=== PATIENT | female | born 1955 | race Caucasian/White ===

== ENCOUNTER 2021-01-31 07:56 | Day surgery (SDC) | payer MEDICARE, BC ==
[~2021-01-31] VITALS: Ht 160 cm; Wt 66.5 kg
[~2021-01-31 07:56] MED LIST: ESCI10; OMEP20ER PO; ZOLP10
[2021-01-31] MEDS ORDERED: ESTRADIOL42.5 GM (08:31)
[2021-01-31] MEDS ORDERED: PROG100 (08:32)
== END 2021-01-31 09:50 | disposition home or self-care (01) ==
LOC: ORSCSDS 07:56
PROVIDERS: Surgery
PROC: 0DJD8ZZ Inspection of Lower Intestinal Tract, Via Natural or Artificial Opening Endoscopic (ICD-10-PCS; principal; 2021-01-31 09:00)
DX: Z12.11 Encounter for screening for malignant neoplasm of colon (principal); F41.9 Anxiety disorder, unspecified; K21.9 Gastro-esophageal reflux disease without esophagitis; E78.5 Hyperlipidemia, unspecified; Z87.891 Personal history of nicotine dependence; Z79.899 Other long term (current) drug therapy
CPT/HCPCS: J2704; J7120

== ENCOUNTER → 2022-10-29 | Outpatient (CLI) | payer MEDICARE, BC ==
[~2022-10-29] MED LIST changes: +ESTRADIOL42.5 GM; +PROG100
[2022-10-30 07:37] LABS: Candida species (DNA Probe) Negative (NEGATIVE); G. vaginalis (DNA Probe) Negative (NEGATIVE); T. vaginalis (DNA Probe) Negative (NEGATIVE)
== END ==
LOC: LAB SHORT 17:31 → LAB 17:31
PROVIDERS: Physician Assistant
DX: B37.31 Acute candidiasis of vulva and vagina (principal)
CPT/HCPCS: 87480; 87510; 87660

== ENCOUNTER → 2022-11-18 | Outpatient (CLI) | payer MEDICARE, BC | LOC: LAB SHORT 14:15 → LAB 14:15 | DX: N39.0 Urinary tract infection, site not specified (principal) | CPT/HCPCS: 87077; 87086; 87186 ==

== ENCOUNTER 2023-06-18 06:41 | Day surgery (SDC) | payer OTHER ==
[~2023-06-18] VITALS: Ht 160 cm; Wt 64.4 kg
[~2023-06-18 06:41] MED LIST changes: +Lactated Ringer's 1,000 ML IV ONE
[2023-06-18] MEDS ORDERED: NS 50 ML IV ONE (06:48)
[2023-06-18] MEDS ORDERED: CeFAZolin Sodium 2,000 MG VIAL ONE (06:48)
[2023-06-18] MEDS ORDERED: Lidocaine HCl 2% 10 ML SDA ONE (07:20)
[2023-06-18] MEDS ORDERED: ZOLPIDEM TARTRAT5 MG PO (07:26)
[2023-06-18] MEDS ORDERED: Lactated Ringer's 1,000 ML IV ONE (07:30)
[2023-06-18] MEDS ORDERED: propofoL 20 ML IV ONE (07:38)
[2023-06-18 08:27] VITALS: BP 94/68
== END 2023-06-18 08:45 | disposition home or self-care (01) ==
LOC: ORSCSDS 06:41
PROVIDERS: Orthopaedic Surgery
PROC: 01N54ZZ Release Median Nerve, Percutaneous Endoscopic Approach (ICD-10-PCS; principal; 2023-06-18 08:00)
DX: G56.03 Carpal tunnel syndrome, bilateral upper limbs (principal); E78.5 Hyperlipidemia, unspecified; F41.9 Anxiety disorder, unspecified; K21.9 Gastro-esophageal reflux disease without esophagitis; Z87.891 Personal history of nicotine dependence; Z79.899 Other long term (current) drug therapy
CPT/HCPCS: J0690; J2001; J2704; J7120

== ENCOUNTER 2024-08-16 06:10 | Day surgery (SDC) | payer OTHER ==
[~2024-08-16] VITALS: Ht 159 cm; Wt 62.7 kg
[2024-08-16] VITALS (16 sets, daily range): BP systolic 74–167; BP diastolic 46–98
[~2024-08-16 06:10] MED LIST changes: +CeFAZolin Sodium 2,000 MG in NS 100 ML IV SCH; +Chlorhexidine Mouth Care 15 ML UDC MT SCH; -ESCI10; +ESCI20 PO; -Lactated Ringer's 1,000 ML IV ONE; +MELO7.5 PO; +Ropivacaine 0.5% HCl/Pf 123.125 MG,EPINEPHrine HCL 0.25 MG,Ketorolac Tromethamine 15 MG... INFIL SCH; +Tranexamic Acid 100 ML IV SCH; +ZOLP10 PO
[2024-08-16] MEDS ORDERED: Dexamethasone Sod Phos 10 MG/ML 1ML VIAL ONE (06:13)
[2024-08-16] MEDS ORDERED: Ondansetron HCl 2 MG / ML 2ML Vial ONE (06:13)
[2024-08-16] MEDS ORDERED: Bupivacaine 0.5% HCl 5 MG/ML 30MLVIAL ONE (06:13)
[2024-08-16] MEDS ORDERED: FentaNYL Citrate 50 MCG/ML 2 ML Injection ONE (06:14)
[2024-08-16] MEDS ORDERED: Metoclopramide HCl 5MG / ML 2ML Vial IV PRN ×2 (06:35→09:55)
[2024-08-16] MEDS ORDERED: Midazolam HCl 1MG / ML 2ML Vial IV ONE (06:35)
[2024-08-16] MEDS ORDERED: FentaNYL Citrate 50 MCG/ML 2 ML Injection IV PRN ×3 (06:40→06:50)
[2024-08-16] MEDS ORDERED: Albuterol 2.5 MG/3 ML VIAL INH PRN (06:45)
[2024-08-16] MEDS ORDERED: Ondansetron HCl 2 MG / ML 2ML Vial IV PRN ×2 (06:50→09:45)
--- NOTE | 2024-08-16 07:26 | NUR ---
History, Chart, Medications and Allergies reviewed before start of procedure. Patient confirms NPO status and agrees with scheduled surgery.
[2024-08-16] MEDS ORDERED: Midazolam HCl 1MG / ML 2ML Vial ONE (07:28)
[2024-08-16] MEDS ORDERED: Phenylephrine HCl 100 MCG/ML-NS 10MLSYR (1MG/10ML) ONE (07:49)
[2024-08-16] MEDS ORDERED: Glycopyrrolate 0.2 MG/ML 5ML VIAL ONE (07:51)
[2024-08-16] MEDS ORDERED: Prochlorperazine Edisylate 10 mg Vial IV PRN (09:50)
[2024-08-16] MEDS ORDERED: Magnesium Hydroxide Conc 10 ML UDC PO PRN (09:55)
[2024-08-16] MEDS ORDERED: HYDROmorphone HCl/Pf 1MG SYR IV PRN (09:55)
--- NOTE | 2024-08-16 10:24 | NUR ---
ARRIVAL TO UNIT AFTER RECEIVING REPORT FROM EPILEPSY PHYSICIAN, PATIENT TRANSFERRED TO UNIT VIA BED AT APPROX 1010. PATIENT ALERT AND ORIENTED X4. COMMUNICATING NEEDS EFFECTIVELY. S/P L HARMAN W/ SPINAL - DENIES SENSATION TO BLE, UNABLE TO WIGGLE TOES. CAP REFILL <3 SECONDS. PPP. DENIES PAIN. BP SOFT - SBP 100s. MAP >65. ASYMPTOMATIC. IVF INFUSING PER EMAR. ON ROOM AIR, SATs >90%. LUNG SOUNDS CLEAR. DENIES N/V - SMALL SNACKS AND WATER WITHIN REACH. TEFLA AND TEGADERM DX C/D/I. POLAR PACK IN PLACE. CALL LIGHT IN REACH. SIGNIFICANT OTHER AT BEDSIDE.
[2024-08-16] MEDS ORDERED: ASPI81CH PO (10:52)
[2024-08-16] MEDS ORDERED: Ketorolac Tromethamine 15mg Vial IV SCH (12:00)
--- NOTE | 2024-08-16 14:00 | NUR ---
REPORT GIVEN TO PINA MELGOZA TO ASSUME CARE AT THIS TIME
--- NOTE | 2024-08-16 14:38 | NUR ---
1400 ASSUMPTION PT AXO4. VSS, SPINAL BLOCK REMAINS TO L LEG, LITTLE TO NO SENSATION REPORTED. PHYSICAL RTHERAPY ATTEMPTED TO WORK WITH PT, FOOT DROP STILL PRESENT. AWAITING TO SEE HOW LONG CESSATION WILL BE. POSSIBLE STAY OVERNIGHT PLANNED. PT AGREEABLE. TOLERATING PO WELL. POLARPACK IN PLACE. UP IN CHAIR RIGHT NOW.
[2024-08-16] MEDS ORDERED: CeFAZolin Sodium 2,000 MG in NS 100 ML IV SCH (15:00)
--- NOTE | 2024-08-16 18:31 | NUR ---
END OF SHIFT PT REMAINS AXO4. VSS. MINOR FOOT DROP REMAINS TO L LEG BUT SENSATION IS RETURNING. CAP REFILL <3SEC. PT UP IN CHAIR. TOLERATING PO INTAKE BUT HAD EPISODE OF NAUSEA - VOMITED AROUND 50MLS, MEDICATED PER EMAR. HAS VOIDED. TELFA/TEGADERM DRESSING TO L HIP CDI. PT AWARE OF PLAN FOR OVERNIGHT STAY WITH DC TOMORROW DUE TO EXTENDED NERVE BLOCK EFFECTS, AGREEABLE TO THIS. PT CURRENTLY RESTING IN CHAIR, EATING DINNER.
--- NOTE | 2024-08-16 22:29 | NUR ---
ASSUMED CARE ASSUMED CARE OF PATIENT AT THIS TIME FROM RHONA ERAZO. REPORT RECEIVED AND PT AWARE OF STAFFING CHANGE.
--- NOTE | 2024-08-16 22:29 | NUR ---
REPORT GIVEN TO NEW PRIMARY NURSE JUSTICE Fox RN. DRESSING TO LEFT HIP C/D/I. PT A/OX4. CALL LIGHT IN REACH.
--- NOTE | 2024-08-17 00:47 | NUR ---
ASSESSMENT NOTE POD 0 S/P LEFT TOTAL HIP, DRESSING CDI WITH POLAR PACK IN PLACE. PT A/OX4 WITH VSS. PAIN MANAGED PER EMAR. YUNI PO DIET. UP WITH FWW, GB, SBA TO BATHROOM. IS ABLE TO MAKE NEEDS KNOWN. DENIES CP/PRESSURE, SOB, OR N/V. IS CURRENTLY RESTING IN BED WITH CALL LIGHT IN REACH.
[2024-08-17 04:03] VITALS: BP 115/64
[2024-08-17 05:07] LABS: BASOPHILS ABSOLUTE AUTO 0.02 K/mm3 (0.00-0.23); BASOPHILS PERCENT AUTO 0 % (0-2); EOSINOPHILS ABSOLUTE AUTO 0.04 K/mm3 (0.00-0.68); EOSINOPHILS PERCENT AUTO 1 % (0-6); Hematocrit 33.1 % (33.0-51.0); Hemoglobin 10.9 g/dL (11.5-16.0); IMMATURE GRAN ABSOLUTE AUTO 0.02 K/mm3 (0.00-0.10); IMMATURE GRAN PERCENT AUTO 0 % (0-1); LYMPHOCYTES ABSOLUTE AUTO 1.19 K/mm3 (0.84-5.20); LYMPHOCYTES PERCENT AUTO 15 % (21-46); MONOCYTES ABSOLUTE AUTO 0.79 K/mm3 (0.16-1.47); MONOCYTES PERCENT AUTO 10 % (4-13); Mean Corpuscular HGB Conc 32.9 g/dL (31.5-36.5); Mean Corpuscular Volume 94 fL (80-100); NEUTROPHILS ABSOLUTE AUTO 6.16 K/mm3 (1.96-9.15); NEUTROPHILS PERCENT AUTO 75 % (41-73); NRBC ABSOLUTE 0.00 K/mm3 (0.00-0.02); NRBC Auto 0.0 /100 WBC (0.0-0.2); Platelet Count 220 K/mm3 (150-400); RDW Coefficient Variation 13.2 % (11.7-14.2); RDW Standard Deviation 45.1 fL (35.1-46.3)
--- NOTE | 2024-08-17 05:15 | NUR ---
SHIFT SUMMARY POD 1 S/P LEFT HIP REPAIR. DRESSING AND ANDRES WRAP CDI WITH POLAR PACK IN PLACE. ABX INFUSED PER ORDER, IV NOW PATENT AND SL. PAIN MANAGED WITH PO MEDICATION. YUNI PO INTAKE, DENIES NV. AMB TO BATHROOM SEVERAL TIMES WITH SBA, FWW, GB- YUNI WELL. A/OX4 WITH VSS. PLAN TO WORK WITH THERAPY AND D/C HOME TODAY.
[2024-08-17 05:44] LABS: Anion Gap 7.0 mmol/L (3-11); Blood Urea Nitrogen 14.0 mg/dL (8-24); CO2, Blood 30.0 mmol/L (21-32); Calcium, Blood 8.9 mg/dL (8.5-10.1); Chloride, Blood 104.0 mmol/L (98-108); Creatinine, Blood 0.73 mg/dL (0.40-1.00); Glucose, Blood 114.0 mg/dL (70-99); Potassium, Blood 4.0 mmol/L (3.5-5.5); Sodium, Blood 137.0 mmol/L (136-145)
[2024-08-17 07:36] VITALS: BP 112/66
--- NOTE | 2024-08-17 10:30 | NUR ---
DISCHARGE NOTE POD 1 L HARMAN. VSS. PAIN MANAGED W/ PRESCRIBED MEDICATION AND COOLING DEVICE. TOLERATING PO INTAKE. VOIDING. TEFLA AND TEGADERM DX C/D/I. PHYSICAL THERAPY EVAL COMPLETED THIS MORNING - AMBULATING W/ SBA FWW GB. IV REMOVED. WRITTEN AND VERBAL EDUCATION PROVIDED - PATIENT AND SPOUSE STATE UNDERSTANDING. SPOUSE TO TRANSPORT PATIENT HOME. PERSONAL BELONGINGS W/ PATIENT. PATIENT TRANSFERRED TO PERSONAL VEHICLE VIA .
== END 2024-08-17 10:33 | disposition home or self-care (01) ==
LOC: ORSCMMR 06:10 → ORD 07:30 → SURS 10:01 → ORSCMMR 08-17 10:33
PROVIDERS: Orthopaedic Surgery
PROC: 0SRB0J9 Replacement of Left Hip Joint with Synthetic Substitute, Cemented, Open Approach (ICD-10-PCS; principal; 2024-08-16 07:30)
DX: M16.12 Unilateral primary osteoarthritis, left hip (principal); E78.5 Hyperlipidemia, unspecified; Z87.891 Personal history of nicotine dependence; K21.9 Gastro-esophageal reflux disease without esophagitis; Z79.899 Other long term (current) drug therapy
CPT/HCPCS: 36415; 72170; 80048; 85025; 97161; 97530; A9270; C1713; C1776; J0165; J0690; J0735; J1100; J1885; J2250; J2371; J2405; J2704; J2795; J3010; J7120

== ENCOUNTER 2024-12-10 02:40 | Emergency (ER) | payer OTHER ==
[~2024-12-10] VITALS: Ht 160 cm; Wt 63.5 kg
[~2024-12-10 02:40] MED LIST changes: +ASPI81CH PO; -CeFAZolin Sodium 2,000 MG in NS 100 ML IV SCH; -Chlorhexidine Mouth Care 15 ML UDC MT SCH; -Ropivacaine 0.5% HCl/Pf 123.125 MG,EPINEPHrine HCL 0.25 MG,Ketorolac Tromethamine 15 MG... INFIL SCH; -Tranexamic Acid 100 ML IV SCH
[2024-12-10 02:52] VITALS: BP 135/67
== END 2024-12-10 04:20 | disposition home or self-care (01) ==
LOC: ER 02:40
DX: R47.81 Slurred speech (principal); R07.89 Other chest pain; T42.6X5A Adverse effect of other antiepileptic and sedative-hypnotic drugs, initial encounter; Z59.89 Other problems related to housing and economic circumstances; Z79.899 Other long term (current) drug therapy; Z79.82 Long term (current) use of aspirin; K21.9 Gastro-esophageal reflux disease without esophagitis
CPT/HCPCS: 70450; 93005; 93010; 99284-25; A9579